=== PATIENT | male | born 1945 | race Caucasian/White ===

== ENCOUNTER 2019-11-09 07:35 | Outpatient (CLI) | payer MEDICARE, MEDICAID, SELFPAY | END 2019-11-09 07:36 | disposition home or self-care (01) | PROVIDERS: PCP Family Medicine; Visit Provider Family Medicine | DX: F70 Mild intellectual disabilities (principal) | CPT/HCPCS: 92556; 92567; 92587 ==

== ENCOUNTER 2020-11-12 09:24 | Outpatient (CLI) | payer MEDICARE, MEDICAID, SELFPAY | END 2020-11-12 09:25 | disposition home or self-care (01) | LOC: ANHAUDIO 09:25 | PROVIDERS: PCP Family Medicine; Visit Provider Family Medicine | DX: Z01.10 Encounter for examination of ears and hearing without abnormal findings (principal) | CPT/HCPCS: 92556; 92567; 92587 ==